=== PATIENT | male | born 1980 | race Caucasian/White ===

== ENCOUNTER 2016-03-06 10:09 | Emergency (ER) | payer BC, OTHER ==
[2016-03-06 10:14] VITALS: BP 149/91; PULSE 94; TEMP 98; BMI 25.1
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
[2016-03-06] MEDS ORDERED: KETOROLAC TROMETHAMINE 60 MG/2 ML VIAL IM ONE (10:44)
== END 2016-03-06 11:52 | disposition home or self-care (01) ==
LOC: JERFT 10:09
PROC: 3E0233Z Introduction of Anti-inflammatory into Muscle, Percutaneous Approach (ICD-10-PCS; principal; 2016-03-06)
DX: S13.4XXA Sprain of ligaments of cervical spine, initial encounter (principal); M25.521 Pain in right elbow; M25.561 Pain in right knee; V43.52XA Car driver injured in collision with other type car in traffic accident, initial encounter; Y92.412 Parkway as the place of occurrence of the external cause; Y93.89 Activity, other specified
CPT/HCPCS: 73070-TC-RT; 99281-25

== ENCOUNTER 2018-09-07 16:06 | Emergency (ER) | payer SELFPAY ==
[2018-09-07 16:31] VITALS: BMI 24.2
--- NOTE | 2018-09-07 17:22 | PDOC ---
History of Present Illness - General Chief Complaint: Pain Stated Complaint: ABDOMINAL PAIN Time Seen by Provider: 09/07/18 17:18 History Source: Patient Exam Limitations: No Limitations - History of Present Illness Initial Comments: 09/07/18 18:05 HISTORY OF PRESENT ILLNESS: 37-year-old male with past medical history of non- insulin-dependent diabetes presents emergency department for evaluation of epigastric pain for the past 3 days. Patient reports increased alcohol use over the past week when the pain had started. Pain worsens after he eats or drinks any alcohol. Patient reports feeling nauseous but has not vomited. Reports the pain is a 7/10 and describes as a burning sensation. Patient has not taken anything for pain relief as of yet. No recent travel or sick contacts. PAST MEDICAL HISTORY: see HPI SURGICAL HISTORY: Denies ALLERGIES: No known drug allergies REVIEW OF SYSTEMS General/Constitutional: Denies fever or chills. Denies weakness, weight change. HEENT: Denies change in vision. Denies ear pain or discharge. Denies sore throat. Cardiovascular: Denies chest pain or shortness of breath. Respiratory: Denies cough, wheezing, or hemoptysis. Gastrointestinal: see HPI Genitourinary: Denies dysuria, frequency, or change in urination. Musculoskeletal: Denies joint or muscle swelling or pain. Denies neck or back pain. Skin and breasts: Denies rash or easy bruising. Neurologic: Denies headache, vertigo, loss of consciousness, or loss of sensation. Psychiatric: Denies depression or anxiety. Endocrine: Denies increased thirst. Denies abnormal weight change. Hematologic/Lymphatic: Denies anemia, easy bleeding, or history of blood clots. Allergic/Immunologic: Denies hives or skin allergy. Denies latex allergy. PHYSICAL EXAM General Appearance: Well-appearing, appropriately dressed. No apparent distress , no intoxication. Respiratory/Chest: Lungs CTAB. No shortness of breath, chest tenderness, respiratory distress, accessory muscle use. No crackles, rales, rhonchi, stridor , wheezing, dullness Cardiovascular: RRR. S1, S2. No JVD, murmur, bradycardia, tachycardia. Vascular Pulses: Dorsalis-Pedis (R): 2+, Dorsalis-Pedis (L): 2+ Gastrointestinal/Abdominal: Normal bowel sounds. Abdomen soft, non-distended. Epigastric tenderness without guarding. No rebound tenderness. No organomegaly , pulsatile mass, guarding, hernia, hepatomegaly, splenomegaly. Lymphatic: No adenopathy, tenderness. Neurologic: food chemist II-XII intact. Fully oriented, alert. Appropriate mood/affect. Motor strength 5/5. No appreciable EOM palsy, facial droop or sensory deficit. Past History - Past Medical History Allergies/Adverse Reactions: Allergies Allergy/AdvReac Type Severity Reaction Status Date / Time No Known Allergies Allergy Verified 09/07/18 16:28 COPD: No - Suicide/Smoking/Psychosocial Hx Smoking History: Never smoked Hx Alcohol Use: Yes (daily) Drug/Substance Use Hx: No Substance Use Type: None *Physical Exam - Vital Signs Last Vital Signs Temp Pulse Resp BP Pulse Ox 98.3 F 86 20 155/98 96 09/07/18 16:28 09/07/18 16:28 09/07/18 16:28 09/07/18 16:28 09/07/18 16:28 ED Treatment Course - LABORATORY CBC & Chemistry Diagram: 09/07/18 18:10 09/07/18 18:10 Medical Decision Making - Medical Decision Making 09/07/18 18:36 A/P: 37-year-old male with epigastric pain for 3 days Pain is likely due to her: Gastritis. This patient does have history of diabetes and will do a cardiac workup to rule out inferior wall VA. Currently I' ll defer imaging pending laboratory studies. Labs including cardiac profile EKG Urinalysis Maalox 30 mL orally now Viscous Lidocaine 20 mL orally now Zofran 4 mg IV now Normal saline 1 L bolus Reassess 09/07/18 20:11 EKG sinus rhythm with rate of 81. Normal intervals present. Normal axis noted. T -wave flattening present in leads III and aVF. No ST elevations or depressions present. Laboratory Tests 09/07/18 09/07/18 18:10 18:10 WBC 7.1 Hgb 15.6 Hct 46.4 Plt Count 318 Sodium 142 Potassium 4.3 Chloride 106 Carbon Dioxide 29 BUN 5.9 L Creatinine 0.6 Total Bilirubin 0.3 AST 28 ALT 31 Alkaline Phosphatase 76 Creatine Kinase 336 H Troponin I < 0.02 Lipase 244 Patient reports he feels better and is tolerating water without difficulty. I will discharge the patient will follow up his primary doctor within 7 days. 09/07/18 20:18 *DC/Admit/Observation/Transfer Diagnosis at time of Disposition: Gastritis Qualifiers: Gastritis type: alcoholic Chronicity: acute Gastritis bleeding: presence of bleeding unspecified Qualified Code(s): K29.20 - Alcoholic gastritis without bleeding - Discharge Dispostion Disposition: HOME Condition at time of disposition: Stable Decision to Admit order: No - Referrals - Patient Instructions Additional Instructions: Avoid alcohol. Rest, drink lots of fluids: Teas, water, soups Petra fredrick, carbonated beverages for the bubbles May try peppermint teas Avoid heavy , spicy or fatty foods until symptoms have resolved Continue smaj-fji-eoamgjj medications for symptomatic relief Tylenol or Motrin for fever and pain Followup with private physician in one to 2 days as needed Return to emergency department for worsened symptoms, fevers, dehydration Evite el alcohol. laxmi Cuevasos lquidos: Ts, agowen, sopas. Petra fredrick, bebidas carbonatadas para las burbujas. Puede probar t de menta Evite los alimentos pesados, picantes o grasos hasta que los sntomas se hayan resuelto. Continuar con los medicamentos de venta homer para el alivio sintomtico. Tylenol o Motrin para la fiebre y el dolor. Seguimiento con mdico privado en 1 a 2 dillard segn sea necesario. Volver al servicio de urgencias para sntomas empeorados, fiebres, deshidratacin. - Post Discharge Activity
[2018-09-07] MEDS ORDERED: ONDANSETRON 4 MG/2 ML VIAL IVPUSH ONE (17:37)
[2018-09-07] MEDS ORDERED: SODIUM CHLORIDE 1,000 ML IV STA ×2 (17:37→19:13)
[2018-09-07] MEDS ORDERED: MAG HYDROX/AL HYDROX/SIMETH 30 ML UNIT-DOSE CUP PO ONE (17:38)
[2018-09-07] MEDS ORDERED: LIDOCAINE VISCOUS 2% ORAL/TOP 20 ML UNIT-DOSE CUP PO ONE (17:38)
[2018-09-07] MEDS ORDERED: ONDANSETRON 4 MG/2 ML VIAL ONE (18:13)
[2018-09-07 18:26] LABS: BASO % 0.6 % (0-2.0); EOS % 0.3 % (0-4.5); HEMATOCRIT 46.4 % (35.4-49); HEMOGLOBIN 15.6 GM/dL (11.7-16.9); MCH 32.7 pg (25.7-33.7); MCHC 33.6 g/dl (32.0-35.9); MEAN CELL VOLUME 97.1 fl (80-96); MEAN PLT VOLUME 7.4 fl (7.5-11.1); MONO % 3.4 % (3.8-10.2); NEUT % 51.7 % (42.8-82.8); PLATELET COUNT 318 K/MM3 (134-434); RBC 4.78 M/mm3 (4.00-5.60); RDW 14.3 % (11.9-15.9); WHITE BLOOD COUNT 7.1 K/mm3 (4.0-10.0)
[2018-09-07] MEDS ORDERED: chlordiazePOXIDE HCL 25 MG CAPSULE PO ONE (19:14)
[2018-09-07] MEDS ORDERED: MAG HYDROX/AL HYDROX/SIMETH 30 ML UNIT-DOSE CUP ONE (19:23)
[2018-09-07] MEDS ORDERED: LIDOCAINE VISCOUS 2% ORAL/TOP 20 ML UNIT-DOSE CUP ONE (19:23)
[2018-09-07 19:50] LABS: ALBUMIN 4.4 g/dl (3.4-5.0); ALK PHOS 76 U/L (45-117); BILIRUBIN,TOTAL 0.3 mg/dL (0.2-1); BLOOD UREA NITROGEN 5.9 mg/dL (7-18); CALCIUM 8.8 mg/dL (8.5-10.1); CHLORIDE 106 mmol/L (98-107); CO2 29 mmol/L (21-32); CREATININE 0.6 mg/dL (0.55-1.3); GLUCOSE,RANDOM 104 mg/dL (74-106); LIPASE 244 U/L (73-393); SGPT/ALT 31 U/L (13-61); SODIUM 142 mmol/L (136-145); TOT PROT 8.9 g/dl (6.4-8.2)
[2018-09-07 19:51] LABS: ANION GAP 8 MMOL/L (8-16); POTASSIUM 4.3 mmol/L (3.5-5.1); SGOT/AST 28 U/L (15-37)
[2018-09-07] MEDS ORDERED: chlordiazePOXIDE HCL 25 MG CAPSULE ONE (20:04)
[2018-09-07 20:28] VITALS: BP 130/90; PULSE 80; TEMP 98
--- NOTE | 2018-09-09 13:38 | EKG ---
Test Reason : Blood Pressure : / mmHG Vent. Rate : 081 BPM Atrial Rate : 081 BPM P-R Int : 162 ms QRS Dur : 084 ms QT Int : 396 ms P-R-T Axes : 058 049 029 degrees QTc Int : 460 ms NORMAL SINUS RHYTHM NORMAL ECG WHEN COMPARED WITH ECG OF 03-JUN-1998 11:30, PREVIOUS ECG IS PRESENT Confirmed by MD JOSE CARLOS, DARREL ([id number]) on 09/09/2018 1:37:40 PM Referred By: JILLIAN SAHU Confirmed By:DARREL BRANCH MD
== END 2018-09-07 20:29 | disposition home or self-care (01) ==
LOC: JER 16:06
PROC: 3E0337Z Introduction of Electrolytic and Water Balance Substance into Peripheral Vein, Percutaneous Approach (ICD-10-PCS; principal; 2018-09-07)
PROC: 3E033GC Introduction of Other Therapeutic Substance into Peripheral Vein, Percutaneous Approach (ICD-10-PCS; 2018-09-07)
DX: K29.20 Alcoholic gastritis without bleeding (principal); E11.9 Type 2 diabetes mellitus without complications; Z79.84 Long term (current) use of oral hypoglycemic drugs
CPT/HCPCS: 36415; 80053; 82550; 82553; 83690; 84484; 85025; 93005; 93010; 99283-25; J7030

== ENCOUNTER 2019-10-01 11:13 | Emergency (ER) | payer OTHER ==
[2019-10-01 11:23] VITALS: BP 128/90; PULSE 78; TEMP 97.6; BMI 27.6
[2019-10-01] MEDS ORDERED: ONDANSETRON 4 MG/2 ML VIAL IVPUSH ONE (11:23)
[2019-10-01] MEDS ORDERED: SODIUM CHLORIDE 1,000 ML IV STA (11:23)
[2019-10-01] MEDS ORDERED: ACETAMINOPHEN 1000 MG/100 ML VIAL (NON FORMULARY) IVPB ONE (11:23)
[2019-10-01] MEDS ORDERED: FAMOTIDINE 20 MG/50 ML IVPB 20 MG/50 ML MG IVPB ONE ×2 (11:23→11:42)
[2019-10-01] MEDS ORDERED: MAG HYDROX/AL HYDROX/SIMETH 30 ML UNIT-DOSE CUP PO ONE (11:24)
--- NOTE | 2019-10-01 11:24 | PDOC ---
Rapid Medical Evaluation Chief Complaint: Pain, Acute Time Seen by Provider: 10/01/19 11:21 Medical Evaluation: Allergies Allergy/AdvReac Type Severity Reaction Status Date / Time No Known Allergies Allergy Verified 09/07/18 16:28 10/01/19 11:21 Pt presents for LUQ pain, n/v/d. States he had bad take out food one week ago. Had diarrhea at the time. Now with 3 days of upper abdominal pain. Exam:TTP LUQ, NAD Orders: labs, GI cocktail Pt to proceed to the ER for further evaluation Discharge Disposition - Diagnosis Abdominal pain Qualifiers: Abdominal location: left upper quadrant Qualified Code(s): R10.12 - Left upper quadrant pain - Discharge Dispostion Condition at time of disposition: Stable - Referrals - Patient Instructions - Post Discharge Activity
--- NOTE | 2019-10-01 11:28 | PDOC ---
History of Present Illness - General Chief Complaint: Pain, Acute Stated Complaint: UPPER ABD PAIN Time Seen by Provider: 10/01/19 11:21 History Source: Patient Exam Limitations: No Limitations - History of Present Illness Initial Comments: 10/01/19 12:30 HPI: This is a 38 y/o male with a PMH of fatty liver and alcohol use presenting to the ED due to 4 days of LUQ abdominal pain. The pain was unprovoked, and describes it as throbbing at rest, and "ripping," 7/10, and radiating to his back with movement. The pain is worse after eating/drinking juice. He also admits to slight diarrhea for 1 week without blood. Denies nausea, vomiting, dysuria, dizziness. ROS: GENERAL/CONSTITUTIONAL: No fever/chills. No weakness. CARDIOVASCULAR: No chest pain or shortness of breath. RESPIRATORY: No cough, wheezing, or hemoptysis. GASTROINTESTINAL: No nausea, vomiting. Yes diarrhea ABDOMEN: LUQ abdominal pain radiating to back GENITOURINARY: No dysuria, frequency, or change in urination. NEUROLOGIC: No headache, vertigo ENDOCRINE: No increased thirst. No abnormal weight change. HEMATOLOGIC/LYMPHATIC: No anemia, easy bleeding ALLERGIC/IMMUNOLOGIC: No hives or skin allergy. PMH: Fatty liver Social Hx: Denies tobacco. Etoh 2x/week 4 ounces Meds: Denied Allergies: Denied PE: GENERAL: Awake, alert, and fully oriented. Patient sitting up in elisabet, in visible distress. HEAD: No signs of trauma EYES: PERRL, EOMI NECK: Normal ROM, supple LUNGS: Breath sounds equal, clear to auscultation bilaterally. No wheezes, and no crackles HEART: Regular rate and rhythm, normal S1 and S2, no murmurs, rubs or gallops ABDOMEN: LUQ tenderness and voluntary guarding. No masses. EXTREMITIES: Normal range of motion, no edema. NEUROLOGICAL: Normal speech, normal gait SKIN: Warm, Dry 10/01/19 12:35 MDM: 10/01/19 13:15 This is a 38 y/o male with a PMH of fatty liver and alcohol use presenting to the ED due to 4 days of LUQ abdominal pain. Pancreatitis vs peptic ulcer vs gallbladder ds - CBC - CMP - EKG Will treat pain, nausea and reassess 10/01/19 13:23 CMP Sodium 141 mmol/L (136-145) 10/01/19 11:48 Potassium 4.2 mmol/L (3.5-5.1) 10/01/19 11:48 Chloride 111 mmol/L (98-107) H 10/01/19 11:48 Carbon Dioxide 24 mmol/L (21-32) 10/01/19 11:48 Anion Gap 6 MMOL/L (8-16) L 10/01/19 11:48 BUN 15.7 mg/dL (7-18) 10/01/19 11:48 Creatinine 0.8 mg/dL (0.55-1.3) 10/01/19 11:48 Est GFR (CKD-EPI)AfAm 133.20 10/01/19 11:48 Est GFR (CKD-EPI)NonAf 114.93 10/01/19 11:48 Random Glucose 108 mg/dL (74-106) H 10/01/19 11:48 Calcium 9.3 mg/dL (8.5-10.1) 10/01/19 11:48 Total Bilirubin 0.4 mg/dL (0.2-1) 10/01/19 11:48 AST 26 U/L (15-37) 10/01/19 11:48 ALT 69 U/L (13-61) H 10/01/19 11:48 Alkaline Phosphatase 120 U/L (45-117) H 10/01/19 11:48 Total Protein 7.8 g/dl (6.4-8.2) 10/01/19 11:48 Albumin 4.0 g/dl (3.4-5.0) 10/01/19 11:48 Lipase 188 U/L (73-393) 10/01/19 11:48 Electrolytes WNL. Lipase WNL. Liver enzymes slightly elevated. CBC WBC 6.1 K/mm3 (4.0-10.0) 10/01/19 11:48 RBC 5.41 M/mm3 (4.00-5.60) 10/01/19 11:48 Hgb 16.6 GM/dL (11.7-16.9) 10/01/19 11:48 Hct 48.7 % (35.4-49) 10/01/19 11:48 MCV 89.9 fl (80-96) 10/01/19 11:48 MCH 30.7 pg (25.7-33.7) 10/01/19 11:48 MCHC 34.1 g/dl (32.0-35.9) 10/01/19 11:48 RDW 12.7 % (11.9-15.9) D 10/01/19 11:48 Plt Count 370 K/MM3 (134-434) 10/01/19 11:48 MPV 8.3 fl (7.5-11.1) D 10/01/19 11:48 Absolute Neuts (auto) 3.8 K/mm3 (1.5-8.0) 10/01/19 11:48 Neutrophils % 62.6 % (42.8-82.8) D 10/01/19 11:48 Lymphocytes % 25.4 % (8-40) D 10/01/19 11:48 Monocytes % 7.8 % (3.8-10.2) D 10/01/19 11:48 Eosinophils % 3.1 % (0-4.5) D 10/01/19 11:48 Basophils % 1.1 % (0-2.0) 10/01/19 11:48 Nucleated RBC % 0 % (0-0) 10/01/19 11:48 No anemia. No leukocytosis. Given the degree of his abdominal pain, negative lipase, will add CT abd/pelvis 10/01/19 15:47 The appendix is normal in caliber and does contain a 1.3 cm calcification consistent with an appendicolith. There is no CT evidence of acute appendicitis, however. Examination of the pelvis demonstrates no evidence of pelvic masses, fl uid collections or lymphadenopathy. There is no evidence of acute diverticulitis. There is no evidence of acute bony pathology. IMPRESSION: 1. Diffuse fatty infiltration of liver. 2. Large appendicolith without evidence of acute appendicitis. 3. No evidence of acute pathology within the abdomen or pelvis. Please see above discussion. 10/01/19 16:23 CT with no acute pathology. Possible gastritis Will have patient follow-up with GI 10/01/19 18:41 Past History - Medical History Allergies/Adverse Reactions: Allergies Allergy/AdvReac Type Severity Reaction Status Date / Time No Known Allergies Allergy Verified 09/07/18 16:28 COPD: No - Immunization History Immunization Up to Date: No - Psycho-Social/Smoking History Smoking History: Never smoked Have you smoked in the past 12 months: No Information on smoking cessation initiated: No - Substance Abuse Hx (Audit-C & DAST Scrn) How often the patient has a drink containing alcohol: 2-4 times / month Score: In Men: 4 or > Positive; In Women: 3 or > Positive: 2 Screen Result (Pos requires Nsg. Audit-10AR): Negative In the last yr the pt used illegal drug/Rx for NonMed reason: No Score: Yes response is considered Positive: 0 Screen Result (Positive result requires Nsg. DAST-10): Negative *Physical Exam - Vital Signs Last Vital Signs Temp Pulse Resp BP Pulse Ox 97.6 F 78 18 128/90 99 10/01/19 11:18 10/01/19 11:18 10/01/19 11:18 10/01/19 11:18 10/01/19 11:18 Heart Score/ECG Review - ECG Intrepretation Comment:: 10/01/19 13:31 Sinus rhythm, no ST elevations or T wave inversions 10/01/19 17:14 Normal sinus rhythm. No ST elevations or T wave inversions. Vent rate 69bpm, WI interval 136ms, QRS duration 90ms, QT/QTc 408/437ms ED Treatment Course - LABORATORY CBC & Chemistry Diagram: 10/01/19 11:48 10/01/19 11:48 Discharge - Discharge Information Problems reviewed: Yes Clinical Impression/Diagnosis: Abdominal pain Qualifiers: Abdominal location: left upper quadrant Qualified Code(s): R10.12 - Left upper quadrant pain Condition: Stable Disposition: HOME - Admission No - Follow up/Referral Referrals: Clyde Eldridge MD [Staff Physician] - - Patient Discharge Instructions Patient Printed Discharge Instructions: DI for Abdominal Pain-Adult Additional Instructions: You were seen in the ED today for abdominal pain. You can take 10mg pepcid twice daily as needed. You were given a referral for Dr. Eldridge a Tractor Trailer Truck Driver. Please follow-up with him in the next week. Return to the ED if you develop worsening pain, nausea/vomiting, high fever, or any other new or concerning symptoms. - Post Discharge Activity
[2019-10-01] MEDS ORDERED: ACETAMINOPHEN INJECTION 100 ML IVPB ONE (11:42)
[2019-10-01] MEDS ORDERED: MAG HYDROX/AL HYDROX/SIMETH 30 ML UNIT-DOSE CUP ONE (11:42)
[2019-10-01 12:13] LABS: BASO % 1.1 % (0-2.0); EOS % 3.1 % (0-4.5); HEMATOCRIT 48.7 % (35.4-49); HEMOGLOBIN 16.6 GM/dL (11.7-16.9); LYMPH % 25.4 % (8-40); MCH 30.7 pg (25.7-33.7); MCHC 34.1 g/dl (32.0-35.9); MEAN CELL VOLUME 89.9 fl (80-96); MEAN PLT VOLUME 8.3 fl (7.5-11.1); MONO % 7.8 % (3.8-10.2); NEUT % 62.6 % (42.8-82.8); PLATELET COUNT 370 K/MM3 (134-434); RBC 5.41 M/mm3 (4.00-5.60); RDW 12.7 % (11.9-15.9); WHITE BLOOD COUNT 6.1 K/mm3 (4.0-10.0)
[2019-10-01 12:53] LABS: BILIRUBIN,TOTAL 0.4 mg/dL (0.2-1); BLOOD UREA NITROGEN 15.7 mg/dL (7-18); CALCIUM 9.3 mg/dL (8.5-10.1); CREATININE 0.8 mg/dL (0.55-1.3); POTASSIUM 4.2 mmol/L (3.5-5.1); TOT PROT 7.8 g/dl (6.4-8.2)
--- NOTE | 2019-10-01 13:22 | PDOC ---
Documentation entered by Makayla De La Fuente SCRIBE, acting as scribe for Wali Villafuerte MD. Wali Villafuerte MD: This documentation has been prepared by the reneeibeSudhakar Ana, SCRIBE, under my direction and personally reviewed by me in its entirety. I confirm that the documentation accurately reflects all work, treatment, procedures, and medical decision making performed by me. Attending Attestation - Resident Resident Name: Cande Du - ED Attending Attestation I have performed the following: I have examined & evaluated the patient, The case was reviewed & discussed with the resident, I agree w/resident's findings & plan, Exceptions are as noted - HPI HPI: 10/01/19 11:31 Patient is a 38 year old male with a significant past medical history of ijz-eyfgzeg-xvpjxunve diabetes, fatty liver, and alcohol use, who presents to the ED with left upper quadrant abdominal pain x4 days. Patient described the pain as "throbbing" when resting and "ripping" with a pain level of 7/10. Patient disclosed that the pain gets worse after eating or drinking. Patient said that the pain came out of nowhere and that it moves to his back upon movement. Patient also endorses NBNB diarrhea x1 week. Patient denies: dizziness, nausea, vomiting, dysuria, weakness Allergies: NKDA - Physicial Exam PE: 10/01/19 11:31 Vitals: Triage Vital signs reviewed General Appearance: no acute distress, well nourished well developed, Head: Atraumatic, normocephalic Cardiac: Regular rate and rhythm, no murmurs, no rubs, no gallops, Lungs: Clear to auscultation bilateral, good air movement bilaterally, Abdomen: Soft, nondistended, normal bowel sounds, Moderate to severe left upper quadrant tenderness palpation with guarding. Extremities: Full range of motion to all extremities, no cyanosis, clubbing, or edema Skin: Warm and dry, no rashes or lesions, no petechiae Psych: normal mood, normal affect 10/01/19 13:23 - Medical Decision Making 10/01/19 16:23 38 years old with several day history of left upper quadrant pain no nausea no vomiting diarrhea x-rays demonstrate no acute pathology labs within normal limits x-rays within normal limits CAT scan demonstrates no acute pathology we will treat with pain medication and have patient follow-up with gastroenterology this week Findings, the need for follow-up and strict return instructions discussed with patient. Heart Score/ECG Review - ECG Impressions Comment:: 10/01/19 13:24 EKG performed at 1214 demonstrates normal sinus rhythm no ST elevations no T wave inversions Interpreted by me. Discharge - Discharge Information Problems reviewed: Yes Clinical Impression/Diagnosis: Abdominal pain Qualifiers: Abdominal location: left upper quadrant Qualified Code(s): R10.12 - Left upper quadrant pain Condition: Stable Disposition: HOME - Follow up/Referral Referrals: Clyde Eldridge MD [Staff Physician] - - Patient Discharge Instructions Patient Printed Discharge Instructions: DI for Abdominal Pain-Adult Additional Instructions: You were seen in the ED today for abdominal pain. A CT scan was done which showed nothing acute - Post Discharge Activity
[2019-10-01] MEDS ORDERED: KETOROLAC TROMETHAMINE 30 MG/1 ML VIAL IVPUSH ONE (15:57)
[2019-10-01] MEDS ORDERED: KETOROLAC TROMETHAMINE 30 MG/1 ML VIAL ONE (16:38)
[2019-10-01 17:43] LABS: URINE APPEARANCE CLEAR; URINE BILIRUBIN NEGATIVE (NEGATIVE); URINE COLOR YELLOW; URINE GLUCOSE (UA) NEGATIVE (NEGATIVE); URINE KETONE NEGATIVE (NEGATIVE); URINE LEUK ESTERASE NEGATIVE (NEGATIVE); URINE NITRITE NEGATIVE (NEGATIVE); URINE PROTEIN NEGATIVE (NEGATIVE); URINE UROBILINOGEN 0.2 mg/dL (0.2-1.0)
--- NOTE | 2019-10-02 09:22 | EKG ---
Test Reason : Blood Pressure : / mmHG Vent. Rate : 069 BPM Atrial Rate : 069 BPM P-R Int : 136 ms QRS Dur : 090 ms QT Int : 408 ms P-R-T Axes : 051 037 031 degrees QTc Int : 437 ms NORMAL SINUS RHYTHM NORMAL ECG WHEN COMPARED WITH ECG OF 07-SEP-2018 19:58, NO SIGNIFICANT CHANGE WAS FOUND Confirmed by MD LCUY, SAM ([id number] on 10/02/2019 9:22:01 AM Referred By: Confirmed By:SAM AYALA MD
== END 2019-10-01 17:07 | disposition home or self-care (01) ==
LOC: JER 11:13
PROC: 3E033NZ Introduction of Analgesics, Hypnotics, Sedatives into Peripheral Vein, Percutaneous Approach (ICD-10-PCS; principal; 2019-10-01)
PROC: 3E033GC Introduction of Other Therapeutic Substance into Peripheral Vein, Percutaneous Approach (ICD-10-PCS; 2019-10-01)
PROC: 3E0337Z Introduction of Electrolytic and Water Balance Substance into Peripheral Vein, Percutaneous Approach (ICD-10-PCS; 2019-10-01)
DX: R10.12 Left upper quadrant pain (principal)
CPT/HCPCS: 36415; 74177-TC; 80053; 81003; 83690; 85025; 86780; 87389; 93005; 93010; 99285-25; J0131; Q9967

== ENCOUNTER 2021-05-17 09:32 | Emergency (ER) | payer OTHER ==
[2021-05-17 10:06] VITALS: BMI 26.6
[2021-05-17] MEDS ORDERED: ACETAMINOPHEN 1000 MG/100 ML BAG IVPB ONE (10:57)
[2021-05-17] MEDS ORDERED: SODIUM CHLORIDE 1,000 ML IV STA (10:57)
[2021-05-17] MEDS ORDERED: ACETAMINOPHEN INJECTION 100 ML IVPB ONE (11:26)
[2021-05-17 12:05] LABS: BASO % 0.6 % (0-2.0); EOS % 1.2 % (0-4.5); HEMATOCRIT 47.1 % (35.4-49); HEMOGLOBIN 16.2 GM/dL (11.7-16.9); LYMPH % 13.1 % (8-40); MCH 30.3 pg (25.7-33.7); MCHC 34.4 g/dl (32.0-35.9); MEAN PLT VOLUME 8.1 fl (7.5-11.1); MONO % 6.6 % (3.8-10.2); NEUT % 78.5 % (42.8-82.8); PLATELET COUNT 309 10^3/uL (134-434); RBC 5.35 M/mm3 (4.00-5.60); RDW 13.3 % (11.9-15.9); WHITE BLOOD COUNT 12.8 K/mm3 (4.0-10.0)
[2021-05-17 12:29] LABS: CHLORIDE 106 mmol/L (98-107); SODIUM 136 mmol/L (136-145)
[2021-05-17 12:30] LABS: CALCIUM 9.3 mg/dL (8.5-10.1)
[2021-05-17 12:31] LABS: ALBUMIN 3.6 g/dl (3.4-5.0); BLOOD UREA NITROGEN 10.9 mg/dL (7-18); CO2 26 mmol/L (21-32); GLUCOSE,RANDOM 92 mg/dL (74-106)
[2021-05-17 12:34] LABS: SGOT/AST 71 U/L (15-37)
[2021-05-17 12:36] LABS: TOT PROT 8.3 g/dl (6.4-8.2)
[2021-05-17 12:37] LABS: ALK PHOS 104 U/L (45-117)
[2021-05-17 12:39] LABS: ANION GAP 3 MMOL/L (8-16); SGPT/ALT 35 U/L (13-61)
[2021-05-17 13:38] LABS: EPI CELLS 4 /uL (0-25.1); HYALINE CASTS 1 /uL (0-3.1); URINE APPEARANCE CLEAR; URINE BACTERIA 9 /uL (0-1359); URINE BILIRUBIN NEGATIVE (NEGATIVE); URINE COLOR YELLOW; URINE GLUCOSE (UA) NEGATIVE (NEGATIVE); URINE KETONE NEGATIVE (NEGATIVE); URINE LEUK ESTERASE NEGATIVE (NEGATIVE); URINE NITRITE NEGATIVE (NEGATIVE); URINE PROTEIN NEGATIVE (NEGATIVE); URINE RBC 6 /uL (0-23.9); URINE UROBILINOGEN 0.2 mg/dL (0.2-1.0); URINE WBC 6 /uL (0-25.8)
[2021-05-17 17:59] VITALS: BP 128/92; PULSE 86; TEMP 97.6
[2021-05-17 18:48] LABS: ALBUMIN 3.5 g/dl (3.4-5.0); BLOOD UREA NITROGEN 8.5 mg/dL (7-18); CALCIUM 8.7 mg/dL (8.5-10.1)
[2021-05-17 18:51] LABS: CREATININE 0.7 mg/dL (0.55-1.3)
[2021-05-17 18:53] LABS: BILIRUBIN,TOTAL 0.7 mg/dL (0.2-1); TOT PROT 7.2 g/dl (6.4-8.2)
== END 2021-05-17 18:37 | disposition home or self-care (01) ==
LOC: JER 09:32
PROC: 3E033GC Introduction of Other Therapeutic Substance into Peripheral Vein, Percutaneous Approach (ICD-10-PCS; principal; 2021-05-17)
DX: K52.9 Noninfective gastroenteritis and colitis, unspecified (principal)
CPT/HCPCS: 36415; 74177-TC; 80053; 81003; 85025; 87086; 96361; 96374; 99285-25